=== PATIENT | female | born 1990 | race Caucasian/White ===

== ENCOUNTER 2023-01-13 17:26 | Emergency (ER) | payer BC, MEDICAID ==
[~2023-01-13] VITALS: Ht 160 cm; Wt 95.3 kg
[2023-01-13 17:43] VITALS: BP_SYST 136; PULSE 122; RESP 18; TEMP 98; O2SAT 98
[2023-01-13] MEDS ORDERED: SEMA1PEN3 INJ (17:49)
[2023-01-13 19:25] LABS: BILIRUBIN,URINE NEGATIVE (NEGATIVE); CLARITY/URINE CLEAR (CLEAR); COLOR,URINE YELLOW (YELLOW); GLUCOSE,URINE NEGATIVE (NEGATIVE); KETONES,URINE NEGATIVE (NEGATIVE); PROTEIN URINE NEGATIVE (NEGATIVE)
[2023-01-13 19:26] LABS: BACTERIA,URINE RARE /HPF (None Seen); BLOOD, URINE 1+ (NEGATIVE); LEUKOCYTE ESTERASE ,URINE TRACE (NEGATIVE); NITRITE, URINE NEGATIVE (NEGATIVE); RBC,URINE 0-3 /HPF (0-3); UROBILINOGEN,URINE 0.2 (0.2-1.0)
[2023-01-13 19:27] LABS: MUCUS,URINE None Seen /LPF (None Seen)
[2023-01-13 20:40] LABS: BASOPHILS % (AUTO) 0.2 % (0.0-2.0); EOSINOPHILS # (AUTO) 0.1 K/uL (0.0-0.4); EOSINOPHILS % (AUTO) 0.8 % (0.0-4.0); HEMATOCRIT 43.6 % (36-48); LYMPHOCYTES # (AUTO) 2.1 K/uL (1.0-5.5); LYMPHOCYTES % (AUTO) 12.9 % (20.5-51.5); MEAN CORPUSCULAR HEMOGLOBIN 30 pg (27-31); MEAN CORPUSCULAR HGB CONC 34 % (32-36); MEAN CORPUSCULAR VOLUME 86 fL (79.0-98.0); MONOCYTES # (AUTO) 1.3 K/uL (0.0-1.0); MONOCYTES % (AUTO) 8.3 % (1.7-9.3); NEUTROPHILS # (AUTO) 12.4 K/uL (1.8-7.7); NEUTROPHILS % (AUTO) 77.8 % (40.0-70.0); PLATELET COUNT (AUTO) 320 K/uL (130-430); RED BLOOD CELL COUNT(AUTO) 5.06 MIL/uL (4.2-6.2); RED CELL DISTRIBUTION WIDTH 13.1 % (9.0-15.0); WHITE BLOOD COUNT (AUTO) 15.9 K/uL (4.8-10.8)
[2023-01-13 20:51] LABS: ALBUMIN 4.1 g/dL (3.4-4.8); CALCIUM 8.6 mg/dL (8.4-11.0); CREATININE 0.7 mg/dL (0.55-1.30); POTASSIUM 3.4 mmol/L (3.5-5.1); TOTAL BILIRUBIN 0.7 mg/dL (0.0-1.0); TOTAL PROTEIN, SERUM 7.7 g/dL (6.4-8.3)
[2023-01-13 21:40] VITALS: BP_SYST 136; PULSE 122; RESP 18; TEMP 98; O2SAT 98
== END 2023-01-13 21:40 | disposition home or self-care (01) ==
LOC: SED 17:26
DX: K59.00 Constipation, unspecified (principal); T38.3X5A Adverse effect of insulin and oral hypoglycemic [antidiabetic] drugs, initial encounter; R10.13 Epigastric pain; R10.30 Lower abdominal pain, unspecified; Z88.2 Allergy status to sulfonamides; Z79.899 Other long term (current) drug therapy; Y92.89 Other specified places as the place of occurrence of the external cause
CPT/HCPCS: 36415; 74021; 80053; 81000; 83690; 85025; 99284